=== PATIENT | female | born 1950 | race Caucasian/White ===

== ENCOUNTER 2018-10-07 14:10 | Emergency (ER) | payer OTHER ==
[~2018-10-07] VITALS: Ht 157.5 cm; Wt 67.1 kg
[2018-10-07] MEDS ORDERED: AMOX1TAB5 (14:55)
[2018-10-07] MEDS ORDERED: LABETALOL HCL200 MG (14:55)
[2018-10-07] MEDS ORDERED: HYZAAR 50-12.51 EACH (14:56)
[2018-10-07] MEDS ORDERED: INDUR (14:57)
[2018-10-07] MEDS ORDERED: ECOTRIN325 MG (14:57)
[2018-10-07] MEDS ORDERED: NORVASC5 MG (14:57)
== END 2018-10-07 17:13 | disposition home or self-care (01) ==
LOC: ER 14:10
DX: G89.18 Other acute postprocedural pain (principal); M79.675 Pain in left toe(s)